=== PATIENT | male | born 2000 | race Two or more races ===

== ENCOUNTER → 2025-10-08 | Outpatient (CLI) | payer SELFPAY ==
--- NOTE | 2025-10-08 10:30 | XR_ITS ---
EXAMINATION: XR video fluoro swallow study HISTORY: 25-year-old with choking incident July 2025 COMPARISON: None TECHNIQUE: Frontal floor clerk radiograph of the chest and lateral floor clerk radiograph of the neck were followed by multiple fluoroscopic images of the neck obtained during ingestion of barium of different consistencies in conjunction with speech pathology. FLUOROSCOPY TIME: 0.2 min RADIATION: 77.57 mGy IMAGES: 113 FINDINGS: Chest imaging demonstrates a normal sized cardiac silhouette. No pneumothorax or pleural effusion. No consolidation. Bones unremarkable for age. Lateral imaging of the neck demonstrates normal vertebral alignment without acute fracture or dislocation. Prevertebral soft tissues are not abnormally thickened. Thin barium by straw: No pooling, penetration, or aspiration. Pudding by spoon: Premature swallow without pooling, penetration, or aspiration. Soft chewable by spoon: No pooling, penetration, or aspiration. Hard chewable by spoon: No pooling, penetration, or aspiration. IMPRESSION: Swallow study performed in conjunction with speech pathology demonstrating premature swallow with pudding, without any fluoroscopic findings for pooling, penetration, or aspiration. Please see speech pathology note for further details. Discussed with speech pathology during and after examination.
== END | disposition home or self-care (01) ==
LOC: SDIM 10:13
PROVIDERS: PCP Family Medicine; Referring Provider Family Medicine; Visit Provider Family Medicine
DX: J69.8 Pneumonitis due to inhalation of other solids and liquids (principal)
CPT/HCPCS: 74230; A9270